=== PATIENT | male | born 1965 | race Caucasian/White ===

== ENCOUNTER → 2023-11-30 10:21 | Outpatient (REF) | payer BC, SELFPAY ==
[2023-11-30 12:04] LABS: HDL Cholesterol 43 mg/dl; LDL Cholesterol, Calculated 9 mg/dl; Total Cholesterol 78 mg/dl (50-199); Triglyceride 133 mg/dl (10-149); Very Low Density Lipoprotein 26 mg/dl (0-30)
== END ==
LOC: REG 10:21
PROVIDERS: ATTENDING PHYSICIAN Internal Medicine Cardiovascular Disease; FAMILY PHYSICIAN Family Medicine
DX: E78.5 Hyperlipidemia, unspecified (principal)
CPT/HCPCS: 36415; 80061

== ENCOUNTER → 2023-12-31 10:37 | Outpatient (REF) | payer BC, SELFPAY | LOC: DHCBC MAIN 10:37 | PROVIDERS: ATTENDING PHYSICIAN Internal Medicine Cardiovascular Disease; FAMILY PHYSICIAN Family Medicine | DX: I25.10 Atherosclerotic heart disease of native coronary artery without angina pectoris (principal); E11.59 Type 2 diabetes mellitus with other circulatory complications; R00.0 Tachycardia, unspecified; R94.31 Abnormal electrocardiogram [ECG] [EKG]; R07.9 Chest pain, unspecified | CPT/HCPCS: 93306 ==